=== PATIENT | female | born 1960 | race American Indian/Alaskan Native ===

== ENCOUNTER 2017-08-23 14:44 | Emergency (ER) | payer SELFPAY ==
[2017-08-23 15:20] LABS: Basophils % (Auto) 0.6 % (0.0-1.8); Eosinophils # (Auto) 0.1 K/mm3 (0.0-0.4); Eosinophils % (Auto) 1.9 % (0.0-4.3); Hematocrit 38.8 % (30.3-42.9); Hemoglobin 12.5 gm/dl (10.1-14.3); Lymphocytes % (Auto) 39.9 % (13.4-35.0); Mean Corpuscular HGB Conc 32 % (30-34); Mean Corpuscular Hemoglobin 28 pg (28-32); Mean Corpuscular Volume 88 fl (79-97); Monocytes # (Auto) 0.6 K/mm3 (0.0-0.8); Monocytes % (Auto) 10.9 % (0.0-7.3); Platelet Count 282 K/mm3 (140-440); Red Blood Count 4.43 M/mm3 (3.65-5.03); Red Cell Distribution Width 14.4 % (13.2-15.2)
[2017-08-23 15:39] LABS: Alanine Aminotransferase 10 units/L (7-56); Albumin 4.2 g/dL (3.9-5); BUN/Creatinine Ratio 29; Blood Urea Nitrogen 20 mg/dL (7-17); Calcium 9.4 mg/dL (8.4-10.2); Hemolysis Index 5
--- NOTE | 2017-08-23 16:34 | Cat Scan Report ---
FINAL REPORT EXAM: CT HEAD/BRAIN WO CON HISTORY: altered mental status. TECHNIQUE: CT head without contrast PRIORS: None. FINDINGS: There is encephalomalacia within the left frontal lobe consistent with remote infarct. No acute intra or extra-axial hemorrhage identified. No evidence for midline shift or mass effect. Ventricles and sulci are within normal limits. Bony calvarium is intact. Visualized portion of the mastoids and paranasal sinuses are unremarkable. IMPRESSION: Remote left frontal infarct No acute abnormality seen
[2017-08-23] MEDS ORDERED: KEPPRA PO ONE (16:56)
[2017-08-23] MEDS ORDERED: CATAPRES PO ONE (17:05)
--- NOTE | 2017-08-23 17:09 | Emergency Department Report ---
HPI - General Chief Complaint: Altered Mental Status Time Seen by Provider: 08/23/17 16:43 - HPI HPI: The patient is a 56-year-old female who presents for evaluation of seizure-like activity one hour prior to arrival. The patient is accompanied by her significant other whom reports that while riding in their car the patient exhibited sudden onset of severe jerking of the arms and legs, twisting of the tongue, and unresponsiveness, constant for approximately 30s. The significant other similar set after the seizure-like activity, the patient was confused, and that the confusion has continuously improved since. The patient states that she feels back to her normal baseline. The patient denies fever, head injury, headache, neck pain, neck stiffness, chest pain, dyspnea, abdominal pain , back pain, neck pain, vision or hearing changes, smell or taste changes, paresthesias, facial drooping, slurred speech, urine or bowel incontinence or retention, or other focal neurological deficit. ED Past Medical Hx - Past Medical History Additional medical history: CVA - Surgical History Past Surgical History?: No - Social History Smoking Status: Never Smoker Substance Use Type: None - Medications Home Medications: Home Medications Medication Instructions Recorded Confirmed Last Taken Type amLODIPine [Norvasc] 5 mg PO DAILY #31 tab 08/23/17 Unknown Rx levETIRAcetam [Keppra TAB] 500 mg PO BID #30 tablet 08/23/17 Unknown Rx ED Review of Systems ROS: Stated complaint: UNRESPONSIVE Other details as noted in HPI Constitutional: denies: fever ENT: denies: throat or neck pain Respiratory: denies: cough, shortness of breath Cardiovascular: denies: chest pain Endocrine: denies unexplained weight loss or gain Gastrointestinal: denies: abdominal pain, nausea Genitourinary: denies: dysuria Musculoskeletal: denies: leg swelling Skin: denies: rash Neurological: reports seziure denies: headache Hematological/Lymphatic: denies: easy bleeding or easy bruising Psych: denies sadness or hopelessness Physical Exam - Physical Exam Vital Signs: Vital Signs 08/23/17 08/23/17 08/23/17 14:51 16:50 16:51 Temperature 98.4 F 98.1 F Pulse Rate 80 60 Respiratory 16 20 20 Rate Blood Pressure 148/80 Blood Pressure 177/75 [Right] O2 Sat by Pulse 100 100 100 Oximetry Physical Exam: General: well-nourished, well-developed, no acute distress Head: Normocephalic, atraumatic Eyes: normal sclera ENT: Mucous membranes are pale and dry Neck: No neck stiffness, no cervical adenopathy Respiratory: Breath sounds equal bilaterally, no wheezing, rales, or rhonchi Cardio: S1 and S2 present, no murmurs, rubs, gallops, capillary refill is delayed Abdomen: Normoactive bowel sounds, soft abdomen, no tenderness Chest WALL/Back: No tenderness to palpation of the chest wall, no CVA tenderness with percussion Musc: No pitting edema Skin: No rash Neuro: alert oriented x4, normal cognition, speech normal, PERRL, EOM intact, no facial drooping, no uvula or tongue deviation on protrusion, no deficit with rotation of neck or shoulder shrug, no obvious gross motor deficit in the upper or lower extremities with flexion or extension at the shoulder, elbow, wrist, hip, knee, or ankle bilaterally, no obvious gross sensation deficit to crude touch or 2 pt discrimination, 2+ symmetric reflexes on DTR testing, no coordination deficit with [id number] or [id number] testing, Babinski downgoing, romberg negative, patient able to to ambulate without abnormal gait Psych: Normal affect ED Course Vital Signs 08/23/17 08/23/17 08/23/17 14:51 16:50 16:51 Temperature 98.4 F 98.1 F Pulse Rate 80 60 Respiratory 16 20 20 Rate Blood Pressure 148/80 Blood Pressure 177/75 [Right] O2 Sat by Pulse 100 100 100 Oximetry ED Medical Decision Making - Lab Data Result diagrams: 08/23/17 15:06 08/23/17 15:06 - Medical Decision Making The patient was seen and examined by myself. The patient is placed on a cardiac specialist and continuous pulse ox. On initial evaluation, the patient was found to be in no distress. Evaluation orders were placed. The patient is given Keppra for treatment of suspected seizure accounting for treatment of her elevated blood pressure. CT scan the head exhibits remote infarct consistent with known history of previous CVA, and otherwise CAT scan was unremarkable. The patient was monitored in the emergency department for greater than 2 hours without any seizure-like activity. The patient was reevaluated and reported that their symptoms were markedly improved. The patient is stable for discharge with outpatient follow-up. The patient is given follow-up and return instructions. The patient expressed understanding and agreed with the plan. The patient is discharged in stable condition. Critical care attestation.: If time is entered above; I have spent that time in minutes in the direct care of this critically ill patient, excluding procedure time. ED Disposition Clinical Impression: Seizure, Hypertensive urgency Disposition: DC-01 TO HOME OR SELFCARE Is pt being admited?: No Does the pt Need Aspirin: No Condition: Stable Instructions: Chronic Hypertension (ED), Hypertension (ED), New-Onset Seizure in Adults (ED) Prescriptions: amLODIPine [Norvasc] 5 mg PO DAILY #31 tab levETIRAcetam [Keppra TAB] 500 mg PO BID #30 tablet Referrals: PRIMARY CAREMD [Primary Care Provider] - 3-5 Days DELMAR DELGADO MD [Staff Physician] - 3-5 Days Time of Disposition: 17:05
[2017-08-23 17:59] VITALS: BP 140/81
== END 2017-08-23 17:59 | disposition home or self-care (01) ==
LOC: ED 14:44
DX: I10 Essential (primary) hypertension (principal)
CPT/HCPCS: 36415; 70450; 80053; 82962; 84443; 85025; 99284; G0480; 80320